=== PATIENT | female | born 1965 | race African-American/Black ===

== ENCOUNTER 2017-08-22 15:00 | Emergency (ER) | payer OTHER ==
[~2017-08-22] VITALS: Ht 160 cm; Wt 80.8 kg
[~2017-08-22 15:00] MED LIST: BENADRYL ALLERG25 MG PO; CIPROFLOXACIN H10 ML LEFT EYE; FAMOTIDINE20 MG PO; FLEXERIL10 MG PO; FLONASE16 G1 BOTH NARES; HEARTBURN150 MG PO; HYDROCHLOROTH12.5 M3 NG; HYDROCHLOROTH12.5 M3 PO; MOBIC7.5 MG PO; MOTRIN600 MG PO; NOHOMEMEDS; PERCOCET 5/31 TABLET PO; PREDNISONE10 MG PO; PRINZIDE 20-121 EACH PO; TYLENOL WITH C1 EACH PO; ULTRAM50 MG PO; ZESTRIL,PRINIVI20 MG PO; ZOFRAN ODT4 MG PO; ZOFRAN4 MG PO; ZYRTEC10 M3 PO
[2017-08-22 15:29] LABS: APPEARANCE CLEAR ((CLEAR)); BILIRUBIN NEGATIVE; BLOOD MODERATE; COLOR YELLOW ((YELLOW)); GLUCOSE (STRIP) NEGATIVE; KETONES NEGATIVE; LEUKOCYTES NEGATIVE; NITRITE NEGATIVE; PROTEIN (STRIP) NEGATIVE; SPECIFIC GRAVITY 1.013 (1.000-1.030); UROBILINOGEN 0.2 MG/DL (0.2-1.0)
[2017-08-22 15:32] LABS: HEMATOCRIT 39.5 % (36.0-46.0); HEMOGLOBIN 13.2 G/DL (11.9-15.5); MCH 32.4 PG (29.0-34.0); MCHC 33.4 G/DL (30.0-36.0); MCV 96.8 FL (83-99); PLATELET COUNT 259 K/uL (156-360); RBC DIS.WIDTH-CV 12.7 % (11.8-14.6); RBC DIS.WIDTH-SD 45.5 % (39-53); RED BLOOD COUNT 4.08 M/uL (3.80-5.20); WHITE BLOOD COUNT 6.8 K/uL (4.1-10.2)
[2017-08-22 15:33] LABS: BACTERIA RARE /HPF; EPITHELIAL CELLS RARE /HPF; MUCUS NONE SEEN /LPF; UCUL ADDED? NO; WHITE BLOOD CELLS 0-5 /HPF (0-5)
[2017-08-22 15:46] LABS: CHLORIDE 109 mEq/L (99-109); POTASSIUM 3.9 mEq/L (3.7-5.4); SODIUM 144 mEq/L (136-147)
[2017-08-22 15:47] LABS: GLUCOSE 92 mg/dL (70-99)
[2017-08-22 15:51] LABS: CREATININE 0.8 mg/dL (0.6-1.3); GFR ESTIMATE (CALCULATED) > 59 mL/min/
[2017-08-22 15:52] LABS: UREA NITROGEN (BUN) 6 mg/dL (9-23)
[2017-08-22] MEDS ORDERED: KEFLEX500 MG PO (16:31)
[2017-08-22 16:41] LABS: QUANTITATIVE HCG < 4.0 MIU/ML
[2017-08-22 17:15] VITALS: BP 197/104
== END 2017-08-22 17:17 | disposition home or self-care (01) ==
LOC: EME 15:00
DX: R31.9 Hematuria, unspecified (principal); R35.0 Frequency of micturition; I10 Essential (primary) hypertension; F17.200 Nicotine dependence, unspecified, uncomplicated; Z91.14 Patient's other noncompliance with medication regimen
CPT/HCPCS: 74176; 80048; 81003; 84702; 85027; 87086; 99281; 99283

== ENCOUNTER 2017-10-10 10:58 | Emergency (ER) | payer SELFPAY ==
[~2017-10-10] VITALS: Ht 160 cm; Wt 77.9 kg
[~2017-10-10 10:58] MED LIST changes: +KEFLEX500 MG PO
[2017-10-10] MEDS ORDERED: LORTAB 5-325 M1 EACH PO (11:55)
[2017-10-10 12:29] VITALS: BP 179/79
== END 2017-10-10 12:30 | disposition home or self-care (01) ==
LOC: EME 10:58
DX: T25.021A Burn of unspecified degree of right foot, initial encounter (principal); X13.1XXA Other contact with steam and other hot vapors, initial encounter; Y93.89 Activity, other specified; Y92.002 Bathroom of unspecified non-institutional (private) residence as the place of occurrence of the external cause; I10 Essential (primary) hypertension; F17.210 Nicotine dependence, cigarettes, uncomplicated; Z71.6 Tobacco abuse counseling; Z88.6 Allergy status to analgesic agent
CPT/HCPCS: 99281; 99283

== ENCOUNTER 2018-01-10 01:00 | Emergency (ER) | payer OTHER ==
[~2018-01-10] VITALS: Ht 157.5 cm; Wt 77.4 kg
[~2018-01-10 01:00] MED LIST changes: +LORTAB 5-325 M1 EACH PO
[2018-01-10] MEDS ORDERED: PROVENTIL HFA6.7 GM IH (01:41)
[2018-01-10] MEDS ORDERED: PREDNISONE20 MG PO (01:41)
[2018-01-10 02:09] VITALS: BP 165/81
== END 2018-01-10 02:10 | disposition home or self-care (01) ==
LOC: EME 01:00
DX: J20.9 Acute bronchitis, unspecified (principal); I10 Essential (primary) hypertension; F17.200 Nicotine dependence, unspecified, uncomplicated
CPT/HCPCS: 71045; 94640; 99281; 99284; J7512